=== PATIENT | female | born 1985 | race Caucasian/White ===

== ENCOUNTER 2019-10-06 06:22 | Inpatient (IN) | payer OTHER ==
--- NOTE | 2019-10-06 07:09 | HP ---
General Information - Reason for Visit 34yo, , IUP@40+0 for evaluation of membrane status - General Information Maternal Age: 34 Grav: 2 Para: 0 SAB: 1 IEA: 0 Estimated Due Date: 10/06/19 Determined By: LMP Gestational Age in Weeks/Days: 40+0 Maternal Blood Type and Rh: A Negative - Results this Serology/RPR Result: Non-Reactive Rubella Result: Immune HBsAg Result: Negative HIV Result: Negative GBS Culture Result: Negative Past Medical History Past Medical History Comment: Depression/anxiety Pertinent Past Surgical History: None Pertinent Family History: Non-Contributory - Antepartal Records Antepartal Records: Reviewed, Complicated by: - AMA, Rh negative Review of Systems Constitutional: Comfortable CV Complaint: No Respiratory: Shortness of Breath: No Gastrointestinal: No Nausea/Vomiting, Normal Bowel Movement Genitourinary: Leaking Fluid, No Dysuria, Spotting Musculoskeletal: Contractions Neurological: No Headache, No Visual Changes Movement: Normal Exam Temp 97.4, HR 100, BP 136/70, O2 99 - Measurements Height: 5 ft 2 in Weight: 185 lb Weight in lbs: 185.502021 Body Mass Index (BMI): 33.8 Pre- Weight: 160 lb Weight Gained This : 25 lbs and 0 ozs - Exam Breast: Breast Exam Deferred CVA: No CVA Tenderness Extremities: No Edema Heart: Normal Rhythm/Heart Sounds HEENT: No Significant Findings Lungs: Clear Bilaterally Rectal: Rectal Exam Deferred Reflexes: DTR 2+ - Abdominal Exam Abdomen Exam: Non-Tender - Ultrasound/Biophysical Profile Ultrasound Status: Not Done Targeted Exam Findings Estimated Weight: 8lbs Cervical Exam: 1cm Effacement: 50% Station: -2 Presenting Part: Vertex Membrane Status: Leaking - clear fluid Amniotic Fluid Evaluation: Gross Rupture Bleeding/Discharge: None EFM Findings - External Monitor Findings Baseline Heart Rate: 130 External Monitor Findings: Accelerations Present, No Pattern of Variable or Late Decelerations, Variability Moderate, Baseline Stable External Monitor Findings Comment: No evidence of metabolic acidemia Contractions: Irregular, Mild, 45-90 Seconds Assessment/Plan - Assessment 34yo, , IUP@40, grossly ruptured complicated by AMA and Rh negative GBS negative, A negative No evidence of metabolic acidemia Irregular contractions VE: 1/50, soft, posterior - clear fluid - Plan Plan: Admit - Anticipate Vaginal Delivery Plan Comment: PARQ discussion about augmenting labor vs expectant management Pt undecided at this point Anticipate progression to active labor - Date/Time of Admission Date of Admission: 10/06/19 Time of Admission: 07:00
[2019-10-06] MEDS ORDERED: Lactated Ringers 1000 ML Bag* 1,000 ML IV ONE ×2 (07:32→18:30)
[2019-10-06] MEDS ORDERED: Buffered Lidocaine 1% SYRIN* 1 ML/SYRINGE INTRADERM ONE (07:32)
--- NOTE | 2019-10-06 09:36 | PN ---
Progress Note - Progress Note Date of Service: 10/06/19 Note: S: Reports feeling UCs intermittently. Not terribly strong yet. States fluid continuing to leak, blood tinged now vs. clear O: FHR: 130s by intermittent auscultation VE deferred - 1.5/50/0 at 0630 A: IUP at 40 0/7 weeks No evidence of metabolic acidemia Not in labor P: Discussed expectant management vs augmentation, she prefers to wait and see if things picker tender helper by noon, may consider augmentation then if not in spontaneous labor Encouraged position changes, ball, balancing exercise with rest Reassess at 1200 or sooner PRN Anticipate SVB
[2019-10-06 09:38] LABS: Urine Benzodiazepine Screen None Detected (None Detect); Urine Opiates Screen None Detected (None Detect)
[2019-10-06] MEDS ORDERED: Oxytocin in LR* 20 UNITS/1,000 ML BAG IVPB ONE (12:41)
--- NOTE | 2019-10-06 12:46 | PN ---
Progress Note - Progress Note Date of Service: 10/06/19 Note: S: States some UCs strong, some more mild-moderate. O: B/P: 120/71, P: 97, R: 16, T: 98.2 FHR: 135 by intermittent auscultation UCs: irregular, moderate to palpation VE: 1.5/60/-1. Anterior. Clear fluid A: IUP at 40 0/7 weeks No evidence of metabolic acidemia Not in labor, no cervical change from previous exam P: PARQ discussion re: IV Pitocin. Pt agrees to trial Continuous EFM per protocol Reassess PRN Anticipate SVB
[2019-10-06] MEDS ORDERED: Oxytocin in LR* 20 UNITS/1,000 ML BAG IVPB SCH (13:00)
[2019-10-06 13:28] LABS: ABS Eosinophils 0.1 10^3/ul (0-0.6); ABS Lymphocytes 1.8 10^3/ul (1.0-4.8); ABS Monocytes 0.9 10^3/ul (0-0.8); ABS Neutrophils 9.1 10^3/ul (1.5-7.7); Eosinophil % 0.9 %; Hematocrit 34 % (35-47); Hemoglobin 11.8 g/dL (12.0-16.0); Lymphocyte % 15.3 %; Mean Corpuscular HGB Conc 35 g/dL (31-36); Mean Corpuscular Hemoglobin 31 pg (27-31); Mean Corpuscular Volume 88 fL (80-97); Mean Platelet Volume 10.1 fL (7.4-10.4); Platelet Count 227 10^3/uL (150-450); Red Blood Count 3.84 10^6 /uL (3.70-4.87); Red Cell Distribution Width 14 % (10-15)
--- NOTE | 2019-10-06 15:57 | PN ---
Progress Note - Progress Note Date of Service: 10/06/19 Note: S: In hands-knees over end of bed, breathing through contractions. Partner at bedside, supportive. Reports difficulty coping and wanting to discuss pain management options O: B/P: 125/74, P: 106, R: 18, T: 98.4 FHR: baseline 125, moderate variability, +accelerations, no decelerations UCs: q2-4 by palpation, moderate to firm. UCs not always tracing well with maternal position changes Pitocin at 12 mu/min A: IUP at 40 0/7 weeks Category I FHR, no evidence of metabolic acidemia P: Discussed pain management options, pt prefers to avoid epidural if possible Discussed nitrous oxide, pt would like to try Initiate nitrous per protocol Reassess PRN Anticipate SVB
[2019-10-06] MEDS ORDERED: OBEPIDURAL* 250 ML EPIDURAL ONE (17:18)
--- NOTE | 2019-10-06 17:21 | PN ---
Progress Note - Progress Note Date of Service: 10/06/19 Note: S: Has been using nitrous but reports pain is intensifying. Requests cervical exam and epidural. O: B/P: 127/84, P: 105, R: 18, T: 98.4 FHR: baseline 120, moderate variability, +accelerations, no decelerations UCs: q 3-4 mins, moderate-firm to palpation VE: 3/80/-1, clear fluid Pitocin at 12 mu/min A: IUP at 40 0/7 weeks Category I FHR, no evidence of metabolic acidemia Early labor P: Nitrous discontinued at 1705, pt assisted to bathroom. Dr Marshal hines, will be down shortly reassess PRN Anticipate SVB
[2019-10-06] MEDS ORDERED: Lidocaine 2% w/ EPI 1:200,000* 20 ML SDV VIAL ONE (18:21)
[2019-10-06] MEDS ORDERED: Lactated Ringers 1000 ML Bag* 500 ML IV PRN ×2 (18:30)
[2019-10-06] MEDS ORDERED: Phenylephrine 40 MCG/ML SYRINGE IV PUSH PRN (18:30)
[2019-10-06] MEDS ORDERED: Famotidine TAB* 20 MG PO PRN (18:30)
[2019-10-06] MEDS ORDERED: Sodium Citrate/Citric Acid* 15 ML UDC PO PRN (18:30)
[2019-10-06] MEDS: Lactated Ringers 1000 ML Bag* 1,000 ML IV SCH ×2 (18:31→19:33)
[2019-10-06] MEDS: Phenylephrine 40 MCG/ML SYRINGE IV PUSH PRN ×4 (18:43→19:31)
[2019-10-06] MEDS ORDERED: Lactated Ringers 1000 ML Bag* 1,000 ML IV SCH ×2 (19:00)
[2019-10-06] MEDS ORDERED: OBEPIDURAL* 250 ML EPIDURAL SCH (19:00)
[2019-10-06] MEDS ORDERED: Acetaminophen TAB* 325 MG PO ONE (19:23)
--- NOTE | 2019-10-06 19:27 | PN ---
Progress Note - Progress Note Date of Service: 10/06/19 Note: Called to room at 1842 for prolonged FHR deceleration. Pt s/p CEI placement with B/P of 89/52. Phenylephrine given IV, pitocin turned off, pt with O2 mask. Deceleration to 70 at tara lasting 7 minutes, back up to 120 briefly and then followed by a 7 minute deceleration to 60s/70s. FSE placed. baseline 130, moderate variability. late deceleration x 3 with next three contractions, followed by early decelerations. O2 mask removed. Pt stable. Plan to closely monitor FHR and labor pattern to assess adequacy without IV pitocin. UCs currently q3-5 mins.
--- NOTE | 2019-10-06 20:36 | PN ---
Progress Note - Progress Note Date of Service: 10/06/19 Note: S: Feeling comfortable, a little sleepy. Received pepcid for nausea and tylenol for headache. Reports headache is improving and nausea is mostly gone Partner, parent and friends at bedside, involved. O: B/P: 118/87, P: 94, R: 20, T: 97.6 FHR: baseline 130, moderate variability, +accelerations, no decelerations for past hour UCs: q4 min, moderate to palpation VE deferred. Clear fluid. SCDs running. A: IUP at 40 0/7 weeks Now Category I FHR, no evidence of metabolic acidemia Early active labor P: Continue without IV pitocin for now. Encouraged rest Reassess as needed Anticipate SVB
--- NOTE | 2019-10-06 23:34 | PN ---
Progress Note - Progress Note Date of Service: 10/06/19 Note: S: Feeling uncomfortable, more aware of UCs. O: B/P: 126/72, P: 109, R: 20, T: 98.2 FHR: baseline 140, moderate variability, +accelerations, occasional variable decelerations. Was basline UCs: q 4 min, moderate to palpation VE: 4/90/-1, MSAF. FSE in place. A: IUP at 40 0/7 weeks Category II FHR no cervical change since last exam P: Discussed position changes, re-starting low-dose pitocin. LMB in house and aware of plan. Pt agrees Reassess PRN Anticipate SVB
--- NOTE | 2019-10-07 01:31 | PN ---
Progress Note - Progress Note Date of Service: 10/07/19 Note: S: Still feeling pain with UCs. Has pushed her bolus button a few times but not consistently O: B/P: 111/64, P: 102, R: 20, T: 98.2 FHR: baseline 125, moderate variability, +accelerations, occasional variable deceleration, occasional early decel UCs: q 3-4 min, moderate to palpation VE deferred, ROM x 21.5 hrs MSAF Pitocin at 6 mu/min A: IUP at 40 1/7 weeks Category II FHR, doubt metabolic acidemia P: Education regarding bolus button reinforced by RN. Assisted pt into seated position Offered to contact anesthesiologist to assess epidural; pt declines Continue pitocin per protocol Reassess in 2-3 hrs or sooner as indicated Anticipate SVB
--- NOTE | 2019-10-07 02:31 | PN ---
Progress Note - Progress Note Date of Service: 10/07/19 Note: S: Vocalizing with UCs, reports intense discomfort despite pressing bolus button. Requesting cervical exam O: B/P: 121/74, P: 108, R: 20, T: 98.3 FHR: baseline 135, moderate variability, +accelerations, no decelerations UCs: q 3-4 min, moderate to palpation VE: 4.5/90/-1, MSAF. Bloody show. Mostly unchanged from previous exam A: IUP at 40 1/7 weeks Category I FHR, no evidence of metabolic acidemia Prolonged active phase of labor P: Discussed epidural bolus, Dr. Aris hines and will be in to evaluate Reassess once comfortable, consider placing IUPC Anticipate SVB
--- NOTE | 2019-10-07 05:30 | PN ---
Progress Note - Progress Note Date of Service: 10/07/19 Note: S: Initially comfortable following epidural bolus, now feeling urge to poop O: B/P: 125/79, P: 98, R: 20, T: 98.4 FHR: baseline 150, moderate variability, +accelerations, variable decelerations UCs: q 3-5 min, moderate to firm to palpation VE: 7.5/90/-1, MSAF. Bloody show Pitocin at 6 mu/min A: IUP at 40 1/7 weeks Category II FHR, doubt metabolic acidemia Active labor/transition P: Encouraged position changes to promote labor progress Offered to discuss discomfort with anesthesiologist; pt declines at this time Continue pitocin per protocol Reassess in 2-3 hrs or sooner PRN Anticipate SVB
[2019-10-07] MEDS ORDERED: Bupivacaine 0.25% SDV PF* 10 ML VIAL INJ ONE ×2 (08:05→10:23)
--- NOTE | 2019-10-07 09:16 | PN ---
Progress Note - Progress Note Date of Service: 10/07/19 Note: S: Patient comfortable after epidural bolus. Has low pelvic/rectal pressure but not feeling contractions at all. O: VE deferred for now, will plan to check in approx 30-60 min FHT 145, occasional variable decelerations, some early, some appear late, mod kira, +accels UCs q 2-3 min BPs 130s/80s, T 98.8 A: IUP @ 40+1 weeks gestation. Ruptured membranes Doubt acidemia P: Continue labor down, recheck cervical dilation and consider pushing trial if complete.
[2019-10-07] MEDS ORDERED: Witch Hazel PAD* JAR ONE (13:52)
[2019-10-07] MEDS ORDERED: fentaNYL* 50 MCG/ML 2 ML VIAL (100 MCG VIAL) ONE ×2 (14:13→14:21)
[2019-10-07] MEDS: fentaNYL* 50 MCG/ML 2 ML VIAL (100 MCG VIAL) IV SLOW PU PRN ×2 (14:15→18:24)
[2019-10-07] MEDS ORDERED: ceFAZolin 2 GM PREMIX in ORs 2 GM/50 ML BAG ONE (14:18)
[2019-10-07] MEDS: ceFAZolin 2 GM PREMIX in ORs 2 GM/50 ML BAG IVPB SCH (14:20)
[2019-10-07] MEDS ORDERED: Midazolam* 1 MG/ML 5 ML VIAL (5 MG) ONE (14:21)
[2019-10-07] MEDS ORDERED: KETAMINE HCL* 50 MG/ML 10 ML VIAL ONE (14:21)
[2019-10-07] MEDS ORDERED: Chloroprocaine 3%* 20 ML VIAL ONE (14:40)
[2019-10-07] MEDS ORDERED: Glycerin ADULT SUPP PR PRN (15:17)
[2019-10-07] MEDS ORDERED: Misoprostol TAB* 200 MCG PR ONE (15:17)
[2019-10-07] MEDS ORDERED: Witch Hazel PAD* JAR TOPICAL PRN (15:17)
[2019-10-07] MEDS ORDERED: Dibucaine 1% 28.35 GM TUBE PR PRN (15:17)
--- NOTE | 2019-10-07 15:59 | PROCNOTE ---
[facility] OB: Delivery Note - Delivery A Date of : 10/07/19 Time of : 13:45 [place] Sex: Female Gestational Age in Weeks and Days at Delivery: 40 Weeks and 1 Days Delivery Method: Spontaneous Vaginal Labor: Spontaneous Did Patient attempt ?: N/A, No Previous Amniotic Fluid: Meconium Estimated Blood Loss: 250 Anesthesia/Analgesia: ITF/Spinal for Labor Delivered By: Lee Delatorre JR - Nursery Level of Nursery: Regular/Bedside - Perineum Perineal Injury: Vaginal Laceration, 2nd Degree Perineal Injury Comment: 2nd Degree Perineal laceration and Vaginal laceration, repaired with 2-0 Vi Perineal Repair: By Delivering Practioner - Events Delivery Events of Note: Pitocin During Labor, Manual Removal of Placenta - Placenta undelivered at 30 minutes status post delivery, umbilical cord avulsed on gentle traction. Anesthesia notified and Dr. Justice called into room for assistance. Anesthesia rebolused epidural. 1 Gram of Cefazolin was administered for infection ppx. Dr. Justice was able to manually remove the placenta. Appearance of placenta consistent with bilobular placenta and velamentous cord insertion. Delivery Events of Note Comment: Called to room for delivery of previously Ordnance Mechanic managed patient secondary to lead process engineer attending other urgent delivery. Apgars 9 and 9. 2nd Degree repair performed. Retained placenta requiring manual removal with the assistance of Dr. Justice. Bleeding minimal. 800mcg Misoprostol given per rectum. Will give IV Abx q 12 x 24 hours for infection ppx.
[2019-10-07] MEDS ORDERED: Lactated Ringers 1000 ML Bag* 1,000 ML IV SCH (16:00)
[2019-10-07] MEDS: Acetaminophen TAB* 325 MG PO PRN ×2 (16:31→20:47)
[2019-10-07] MEDS: Ibuprofen TAB* 600 MG PO PRN ×2 (16:31→23:42)
[2019-10-07] MEDS ORDERED: Benzocaine/Menthol LOZ* 1 LOZENGE PO PRN (17:26)
[2019-10-07] MEDS ORDERED: Lidocaine 1% INJ* 10 MG/ML 30 ML SDV ONE (20:07)
[2019-10-07] MEDS: Docusate CAP* 100 MG PO SCH (20:48)
[2019-10-08] MEDS: ceFAZolin 2 GM PREMIX in ORs 2 GM/50 ML BAG IVPB SCH (00:06)
[2019-10-08] MEDS ORDERED: Magnesium Sulfate CRYSTAL* 454 GM BOX TOPICAL PRN (01:30)
[2019-10-08] MEDS: Acetaminophen TAB* 325 MG PO PRN (03:48)
[2019-10-08] MEDS ORDERED: RHO D Immune Globulin (HUMAN)* 300 MCG = 1,500 I.U. INJ IM ONE (06:00)
[2019-10-08 06:01] LABS: ABS Eosinophils 0.1 10^3/ul (0-0.6); ABS Monocytes 0.8 10^3/ul (0-0.8); ABS Neutrophils 14.9 10^3/ul (1.5-7.7); Eosinophil % 0.5 %; Hematocrit 28 % (35-47); Hemoglobin 9.7 g/dL (12.0-16.0); Lymphocyte % 11.4 %; Mean Corpuscular HGB Conc 34 g/dL (31-36); Mean Corpuscular Hemoglobin 31 pg (27-31); Mean Corpuscular Volume 90 fL (80-97); Mean Platelet Volume 9.7 fL (7.4-10.4); Platelet Count 173 10^3/uL (150-450); Red Blood Count 3.12 10^6 /uL (3.70-4.87); Red Cell Distribution Width 14 % (10-15); White Blood Count 17.9 10^3/uL (3.5-10.8)
[2019-10-08] MEDS: Ibuprofen TAB* 600 MG PO PRN ×3 (08:28→20:51)
[2019-10-08] MEDS: Docusate CAP* 100 MG PO SCH ×3 (08:29→20:51)
[2019-10-08] MEDS: Ferrous Gluconate TAB* 324 MG TAB PO SCH ×2 (08:29→20:51)
--- NOTE | 2019-10-08 21:34 | PN ---
Progress Note - Progress Note Date of Service: 10/08/19 Note: Paged by RN to evaluate pt's right eye Earlier today pt reported to RN that her right eye was painful. On exam RN noted a "blister on her eyeball" and paged CNM for further evaluation. Pt reports ongoing discomfort in right eye and limited vision out of the right side of the right eye On exam pt's right eye appears red and slightly irritated. PERRLA. EOM intact. Right side of sclera with a small swelling or serous filled cyst. Conjunctiva mildly injected from the right outer eye Left eye appears unaffected Call to covering hospitalist, Dr. Peggy Newberry. Reviewed pt complaint and exam. He will come and assess patient. Consult input
--- NOTE | 2019-10-09 01:22 | CONS ---
CONSULTATION REPORT: DATE OF CONSULT: 10/08/19 REQUESTING PHYSICIAN: Wendi Auguste CNM CONSULTING PHYSICIAN: Joseph Newberry MD REASON FOR CONSULTATION: Right eye injury. HISTORY OF PRESENT ILLNESS: This is a 34-year-old female with no significant past medical history, G2, P1, status post normal spontaneous vaginal delivery yesterday, was in her usual state of health up until this morning. When she woke up, she was having some itching and irritability on her right eye with some mild discomfort, which she would not really qualify as pain, but more of a discomfort and the patient was noted to have increasing swelling and which caused mild obstruction in her vision deep as the swelling itself, but no vision loss. The patient otherwise denies any fever, chills, and shortness of breath, chest pain, nausea, vomiting, diarrhea, any other rheumatological diseases. 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 PAST MEDICAL HISTORY: As mentioned, no medical problems and normal spontaneous vaginal delivery. PAST SURGICAL HISTORY: Include the wisdom tooth removal at age 17. She has previously had a history of stye in her eye as well. HOME MEDICATIONS: The patient is on some vitamins prior to coming in and was given some p.r.n. medications and iron after admitting to the hospital. ALLERGIES: No known drug allergies. FAMILY HISTORY: Mother, age 55, has diabetes. There is significant diabetes in her mother's side, but no coronary event or any stroke. Father age 58. He is otherwise healthy and rest of her father's side is pretty healthy as well. SOCIAL HISTORY: Quit smoking ever since she was . Prior to that, had 15 years smoking half a pack per day. Denies any alcohol abuse. She has tried marijuana in the past, but has not done so in many months and she has been an budget assistant. PHYSICAL EXAM: Vital Signs: Temperature was recorded at 100.2 max yesterday and repeat temperature during my evaluation was noted to be 98.5, heart rate 102 , respiratory rate 12, saturating 98% on room air, and BP was noted to be 116/ 70. In general, the patient is awake, alert, and oriented x3, does not appear to be in any acute distress. Head and Neck Examination: Atraumatic, normocephalic. Bilateral pupils are reactive. The patient did have scleral swelling noted on the lateral aspect of the right eye. Appears to be an episcleritis rather than any other infection. There was no photosensitivity during my ophthalmoscopic examination and no hemorrhage was notified in the ophthalmoscopic examination. Neck: Supple. No jugular venous distention. Heart Examination: S1, S2. Regular rate and rhythm. Lungs: Clear to auscultation bilaterally. No wheezing, rhonchi or rales. Abdomen: Soft, nontender with some distention due to recent state. Extremities: The patient did have bilateral lower extremity edema likely due to edema. DIAGNOSTIC STUDIES/LAB DATA: CBC shows elevated white count of 17.9. Hemoglobin and hematocrit stable. Urine toxicology was noted to be negative. IMPRESSION: This is a 34-year-old female, status post normal spontaneous vaginal delivery, noted to have some itching and irritation on the right eye, likely episcleritis. PLAN/RECOMMENDATIONS: Recommend topical lubricant and analgesics. However, to establish a proper diagnosis, I recommend the patient to be evaluated by an camera machinist in the near future. If she develops any significant eye symptoms such as photophobia or any severe pain, I would recommend an urgent evaluation by an camera machinist. Rest of the care as per obstetrics team. [id number]/CPS #: [id number] MTDD
[2019-10-09 07:37] VITALS: BP 117/72
[2019-10-09] MEDS: Ibuprofen TAB* 600 MG PO PRN (07:38)
[2019-10-09] MEDS: Docusate CAP* 100 MG PO SCH (07:38)
[2019-10-09] MEDS: Ferrous Gluconate TAB* 324 MG TAB PO SCH (07:38)
== END 2019-10-09 12:45 | disposition home or self-care (01) | DRG 541 ==
LOC: MCHOBOUT 06:22 → MCHOB 07:21
PROVIDERS: ADMIT Advanced Practice Midwife; ATTEND Obstetrics & Gynecology
PROC: 10E0XZZ Delivery of Products of Conception, External Approach (ICD-10-PCS; principal; 2019-10-07)
PROC: 0KQM0ZZ Repair Perineum Muscle, Open Approach (ICD-10-PCS; 2019-10-07)
PROC: 10D17Z9 Manual Extraction of Products of Conception, Retained, Via Natural or Artificial Opening (ICD-10-PCS; 2019-10-07)
DX: O99.344 Other mental disorders complicating childbirth (principal); Z37.0 Single live birth; F41.8 Other specified anxiety disorders; O70.0 First degree perineal laceration during delivery; O69.89X0 Labor and delivery complicated by other cord complications, not applicable or unspecified; O73.0 Retained placenta without hemorrhage; O90.81 Anemia of the puerperium; D64.9 Anemia, unspecified; H15.101 Unspecified episcleritis, right eye; Z3A.40 40 weeks gestation of pregnancy; Z87.891 Personal history of nicotine dependence; O77.0 Labor and delivery complicated by meconium in amniotic fluid
CPT/HCPCS: 36415; 80307; 85025; 86850; 86900; 86901; A9270-GY; G0480; J0690; J2250; J2400; J3010; J3490